=== PATIENT | female | born 1940 | race Caucasian/White ===

== ENCOUNTER 2016-09-08 13:13 | Emergency (ER) | payer MEDICAID ==
[~2016-09-08] VITALS: Wt 83.0 kg
[~2016-09-08 13:13] MED LIST: ASPI-664 PO; FURO20TA3 PO; HYDR-3671 PO; LISI40TA9 PO
[2016-09-08] MEDS ORDERED: LABETALOL HCL 20MG INJ IV ONE (15:00)
[2016-09-08] MEDS ORDERED: SOD CHLORIDE 0.9% 500 ML IV ONE (15:00)
[2016-09-08] MEDS ORDERED: ONDANSETRON 4 MG INJ IV STA (15:07)
[2016-09-08 15:16] LABS: ADD SCAN DIFF NO
[2016-09-08 15:18] LABS: BASOPHIL # 0.1 10^3/ul (0.0-0.1); BASOPHILS % 0.9 % (0.0-2.0); EOSINOPHILS # 0.1 10^3/ul (0.0-0.5); EOSINOPHILS % 1.3 % (0.0-7.0); HEMATOCRIT 36.1 % (37.0-47.0); HEMOGLOBIN 12.1 g/dl (12.0-16.0); LYMPHOCYTES # 1.6 10^3/ul (0.8-2.9); LYMPHOCYTES % 23.2 % (15.0-51.0); MEAN CORPUSCULAR HEMOGLOBIN 29.5 pg (29.0-33.0); MEAN CORPUSCULAR HGB CONC 33.5 g/dl (32.0-37.0); MEAN PLATELET VOLUME 10.9 fl (7.4-10.4); MONOCYTE # 0.5 10^3/ul (0.3-0.9); MONOCYTES % 7.4 % (0.0-11.0); NEUTROPHIL # 4.6 10^3/ul (1.6-7.5); NEUTROPHILS % 67.1 % (39.0-77.0); PLATELET COUNT 203 10^3/UL (140-415); RED CELL DISTRIBUTION WIDTH 13.1 % (11.5-14.5); WHITE BLOOD COUNT 6.9 10^3/ul (4.8-10.8)
[2016-09-08] MEDS ORDERED: MECLIZINE 12.5 MG TAB PO ONE (15:30)
[2016-09-08 15:39] LABS: INR 1.09; PROTIME 14.1 Sec (12.2-14.2); PT RATIO 1.1
[2016-09-08 15:40] LABS: ALANINE AMINOTRANSFERASE 30 IU/L (13-69); ALBUMIN 4.7 g/dl (3.3-4.9); ALBUMIN/GLOBULIN RATIO 1.34; ALKALINE PHOSPHATASE 108 IU/L (42-121); ANION GAP 14 (8-16); ASPARTATE AMINO TRANSFERASE 19 IU/L (15-46); BILIRUBIN,INDIRECT 0.9 mg/dl (0-1.1); BILIRUBIN,TOTAL 0.9 mg/dl (0.2-1.3); BLOOD UREA NITROGEN 20 mg/dl (7-20); CALCIUM 9.1 mg/dl (8.4-10.2); CARBON DIOXIDE 27 mmol/L (21-31); CHLORIDE 99 mmol/L (97-110); CREATININE 0.95 mg/dl (0.44-1.00); GLUCOSE 157 mg/dl (70-220); PARTIAL THROMBOPLASTIN TIME 29.6 Sec (25.0-35.0); POTASSIUM 3.7 mmol/L (3.5-5.1); SODIUM 136 mmol/L (135-144); TOTAL PROTEIN 8.2 g/dl (6.1-8.1)
[2016-09-08 15:55] LABS: TROPONIN-I < 0.012 ng/ml (0.00-0.12)
--- NOTE | 2016-09-08 16:13 | RADRPT ---
PROCEDURE: XR Chest. CLINICAL INDICATION: Chest pain. TECHNIQUE: Single frontal view of the chest was obtained. COMPARISON: Chest x-ray 11/10/2015 06:31 p.m. FINDINGS: The soft tissues are generous. Monitoring electrodes are draped across the chest. There are degene rative osteophytes in the thoracic spine. The heart is mildly enlarged. The cardiomediastinal silh ouette and hilar structures are normal. The pulmonary vasculature is equilibrated. There are vascul ar calcifications and ectasia of the thoracic aorta. There is flattening of the diaphragms with incr eased interstitial markings in the bases of the lungs. The left costophrenic angle is obscured. Ri ght costophrenic angle is unremarkable. IMPRESSION: 1. Cardiomegaly with mild pulmonary venous obstruction. 2. Increased interstitial markings in the bases of the lungs which are unchanged compared to 2015. It is unclear if these are acute or chronic. 3. Obscuration of the left costophrenic angle could be the result of atelectasis, pleural scarring or a small pleural effusion. RPTAT:AAJJ Physician Rolando Date Time Electronically viewed and signed by Physician Rolando on 09/08/2016 16:13 KATHRYN/
--- NOTE | 2016-09-08 16:32 | RADRPT ---
PROCEDURE: CT Brain without contrast. CLINICAL INDICATION: High blood pressure and headache with vertigo TECHNIQUE: A CT of the brain was performed on a [employer] 64-slice CT scanner utilizing axial imaging from the skull base through the vertex without IV contrast. Multiplanar reformatted images were made. Images were reviewed on a PACS workstation. The CTDIvol is 41.74 mGy and the DLP is 720 .23 mGycm. One of the following 3 dose reduction techniques were used: Automated exposure control; adjustment of the mA and/or kV according to patient size; or use of iterative reconstruction technique. COMPARISON: 05/04/2007 CT brain FINDINGS: There is no intracranial hemorrhage, mass effect, or midline shift. No extra-axial fluid collection is seen. The ventricles and sulci are age appropriate. Mild diffuse volume loss is present. Subtl e decreased attenuation is present in the bilateral subcortical white matter, bilateral centrum semi ovale, and bilateral periventricular white matter compatible with mild chronic microvascular ischemi c disease. Mild vascular calcifications are present of the intracranial internal carotid arteries. The visualized scalp and calvarium are normal. The bilateral orbits are normal. The bilateral para nasal sinuses, mastoid air cells and middle ear cavities are clear. IMPRESSION: 1. No evidence of acute intracranial hemorrhage, infarcts, or acute intracranial pathology. 2. Mild chronic microvascular ischemic disease and mild diffuse volume loss. 3. Mild atherosclerotic vascular disease RPTAT: HDC .Verena Zacarias MD, MD Date Time Electronically viewed and signed by .Verena Zacarias MD, MD on 09/08/2016 16:31 .C/
--- NOTE | 2016-09-08 16:56 | ERD ---
ER Documentation Chief Complaint Date/Time DATE: 09/08/16 TIME: 16:52 Chief Complaint dizziness for 3 days with possible high bp. no cp . no neuro def. HPI This 76-year-old female presents for 3 days of dizziness. Dizziness is described as a sensation of spinning. She also has nausea but no vomiting. Also complains of pain shooting down her left arm primarily in her left hand... She has no headache, chest pain, shortness of breath. She has had no recent trauma. She is on 3 medications for blood pressure. These include lisinopril, hydralazine, Lasix. States that she has been taking them normally ROS All systems reviewed and are negative except as per history of present illness. Medications Home Meds Active Scripts Amlodipine Besylate* (Amlodipine Besylate*) 5 Mg Tablet, 5 MG PO DAILY, #30 TAB Prov:JANNETDELILAH DO 09/08/16 Ondansetron (Ondansetron Odt) 4 Mg Tab.rapdis, 4 MG PO Q6H Y for NAUSEA AND/OR VOMITING, #10 TAB Prov:JANNETDELILAH DO 09/08/16 Meclizine Hcl* (Meclizine Hcl*) 25 Mg Tablet, 25 MG PO Q8H Y for DIZZINESS, #20 TAB Prov:JANNETDELILAH DO 09/08/16 Furosemide* (Furosemide*) 20 Mg Tablet, 20 MG PO DAILY, #30 TAB 1 Refill Prov:OMERO DISLA MD 10/23/15 Reported Medications Lisinopril* (Lisinopril*) 40 Mg Tablet, 40 MG PO DAILY, #30 TAB 11/27/15 Aspirin* (Aspirin* EC) 81 Mg Tablet.dr, 81 MG PO DAILY, TAB 11/27/15 Hydralazine Hcl* (Hydralazine Hcl*) 25 Mg Tab, 25 MG PO Q8, #90 TAB 11/27/15 Allergies Allergies: Coded Allergies: No Known Allergy (Verified , 10/22/15) PMhx/Soc History of Surgery: No Anesthesia Reaction: No Hx Neurological Disorder: No Hx Respiratory Disorders: No Hx Cardiac Disorders: Yes (HTN) Hx Psychiatric Problems: No Hx Miscellaneous Medical Probl: No Hx Alcohol Use: No Hx Substance Use: No Hx Tobacco Use: No Physical Exam Vitals Vital Signs Date Time Temp Pulse Resp B/P Pulse Ox O2 Delivery O2 Flow Rate FiO2 09/08/16 17:05 75 20 181/77 100 Room Air 09/08/16 13:17 99.1 83 21 207/100 98 Physical Exam Const: [] No distress Head: Atraumatic Eyes: Normal Conjunctiva, EOMI, PRL ENT: Normal External Ears, Nose and Mouth. Neck: Full range of motion..~ No meningismus. Resp: Clear to auscultation bilaterally Cardio: Regular rate and rhythm, no murmurs Abd: Soft, non tender, non distended. Normal bowel sounds Skin: No petechiae or rashes Back: No midline or flank tenderness Ext: No cyanosis, or edema, distal pulses intact all 4 extremities Neur: Awake and alert and oriented 3, cranial nerves II through XII intact, no cerebral deficits, normal gait, 5 out of 5 strength all extremities Psych: Normal Mood and Affect Result Diagram: 09/08/16 1505 09/08/16 1505 Results 24 hrs Laboratory Tests Test 09/08/16 15:05 09/08/16 16:40 White Blood Count 6.910^3/ul Red Blood Count 4.1010^6/ul Hemoglobin 12.1g/dl Hematocrit 36.1% Mean Corpuscular Volume 88.0fl Mean Corpuscular Hemoglobin 29.5pg Mean Corpuscular Hemoglobin Concent 33.5g/dl Red Cell Distribution Width 13.1% Platelet Count 17506^3/UL Mean Platelet Volume 10.9fl Neutrophils % 67.1% Lymphocytes % 23.2% Monocytes % 7.4% Eosinophils % 1.3% Basophils % 0.9% Nucleated Red Blood Cells % 0.0/100WBC Neutrophils # 4.610^3/ul Lymphocytes # 1.610^3/ul Monocytes # 0.510^3/ul Eosinophils # 0.110^3/ul Basophils # 0.110^3/ul Nucleated Red Blood Cells # 0.010^3/ul Prothrombin Time 14.1Sec Prothrombin Time Ratio 1.1 INR International Normalized Ratio 1.09 Activated Partial Thromboplast Time 29.6Sec Sodium Level 136mmol/L Potassium Level 3.7mmol/L Chloride Level 99mmol/L Carbon Dioxide Level 27mmol/L Anion Gap 14 Blood Urea Nitrogen 20mg/dl Creatinine 0.95mg/dl Glucose Level 157mg/dl Calcium Level 9.1mg/dl Total Bilirubin 0.9mg/dl Direct Bilirubin 0.00mg/dl Indirect Bilirubin 0.9mg/dl Aspartate Amino Transf (AST/SGOT) 19IU/L Alanine Aminotransferase (ALT/SGPT) 30IU/L Alkaline Phosphatase 108IU/L Troponin I < 0.012ng/ml Total Protein 8.2g/dl Albumin 4.7g/dl Globulin 3.50g/dl Albumin/Globulin Ratio 1.34 Urine Color STRAW Urine Clarity CLEAR Urine pH 6.0 Urine Specific [place] 1.006 Urine Ketones NEGATIVEmg/dL Urine Nitrite NEGATIVEmg/dL Urine Bilirubin NEGATIVEmg/dL Urine Urobilinogen NEGATIVEmg/dL Urine Leukocyte Esterase TRACELeu/ul Urine Microscopic RBC 1/HPF Urine Microscopic WBC 1/HPF Urine Hemoglobin NEGATIVEmg/dL Urine Glucose NEGATIVEmg/dL Urine Total Protein NEGATIVEmg/dl Current Medications Medications (Trade) Dose Ordered Sig/Nisha Route PRN Reason Start Time Stop Time Status Last Admin Dose Admin Labetalol HCl 20 mg 20 mg ONCE ONCE IV 09/08/16 15:00 09/08/16 15:01 DC 09/08/16 15:35 Sodium Chloride (NS) 500 ml @ 500 mls/hr Q1H ONCE IV 09/08/16 15:00 09/08/16 15:59 DC 09/08/16 15:35 Meclizine HCl (Antivert) 25 mg ONCE ONCE PO 09/08/16 15:30 09/08/16 15:56 DC 09/08/16 15:36 Ondansetron HCl (Zofran Inj) 4 mg ONCE STAT IV 09/08/16 15:07 09/08/16 15:09 DC 09/08/16 15:36 Procedures/MDM Hypertensive urgency and patient with vertigo and pain shooting down her left arm possibly concerning for cardiac dysfunction. Patient with 3 days of vertigo and nausea with no previous history warranted a stroke and chest pain workup with her left arm pain. Fortunately she shows no signs of cardiac ischemia. She does have poorly controlled blood pressures her EMR shows her last visit for his uncontrolled hypertension as well. She states that she has a primary care doctor but he has not changed her medication for some time. Gave her 20 mg of labetalol in the emergency room because of a very high blood pressure with concerning symptoms. Blood pressure was lowered to an acceptable level. Patient was given 25 mg of Antivert and 4 mg of IV Zofran as well as 500 cc of IV fluid. Stated that her symptoms have resolved completely. I doubt subarachnoid hemorrhage or any acute stroke. Seems like this is an inner ear problem. I am going to discharge with follow-up and instructions to obtain a referral for an ENT doctor. I am discharging with Antivert, Zofran ODT, amlodipine 5 mg tabs. I have instructed to follow-up with a primary care doctor in the next day or 2 to discuss her blood pressure and also talk to her about getting a blood pressure machine at home so she can keep a diary to provide her doctor with to make better decisions about her blood pressure regimen. EKG interpretation: Sinus bradycardia rate of 56, first-degree AV block with SC of 210, left axis deviation, no ST or T-wave changes concerning for acute ischemia. monitor and storage bin tender interpretation: Sinus bradycardia alternating with normal sinus rhythm, no other arrhythmias Chest x-ray interpretation: I see no acute process. I see no widened mediastinum, no pneumothorax, no infiltrates, no pulmonary edema, no fractures CT brain interpretation: I see no acute process. I see no hemorrhage, no mass- effect no midline shift, no skull fracture Critical care time 33 minutes: This includes treatment of hypertensive urgency in a patient with very poorly controlled blood pressure and a systolic over 200 and diastolic over 100, use of IV vasoactive medication labetalol, multiple visits the patient's bedside to reassess her status, chart review, discussion at length with patient and family. This does not include any billable procedure Departure Diagnosis: Primary Impression: Vertigo Additional Impressions: Left arm pain Uncontrolled hypertension DELILAH POWER DO Sep 08, 2016 16:56
[2016-09-08 17:05] VITALS: BP 181/77; PULSE 75; RESP 20
[2016-09-08 17:27] LABS: ADD UMIC YES; UR ASCORBIC ACID NEGATIVE (NEGATIVE); UR BILIRUBIN (Dip) NEGATIVE (NEGATIVE); UR BLOOD (Dip) NEGATIVE (NEGATIVE); UR CLARITY CLEAR (CLEAR); UR COLOR STRAW (YELLOW); UR GLUCOSE (Dip) NEGATIVE (NEGATIVE); UR KETONES (Dip) NEGATIVE (NEGATIVE); UR LEUKOCYTE ESTERASE (Dip) TRACE Leu/ul (NEGATIVE); UR NITRITE (Dip) NEGATIVE (NEGATIVE); UR RBC 1 /HPF (0-5); UR SPECIFIC GRAVITY (Dip) 1.006 (1.003-1.030); UR TOTAL PROTEIN (Dip) NEGATIVE (NEGATIVE); UR UROBILINOGEN (Dip) NEGATIVE (NEGATIVE)
[2016-09-08] MEDS ORDERED: MECL-77 PO (17:36)
[2016-09-08] MEDS ORDERED: ONDA4TAB14 PO (17:36)
[2016-09-08] MEDS ORDERED: AMLO-145 PO (17:41)
== END 2016-09-08 18:26 | disposition home or self-care (01) ==
LOC: E/R 13:13
DX: R42 Dizziness and giddiness (principal); R40.2252 Coma scale, best verbal response, oriented, at arrival to emergency department; M79.602 Pain in left arm; I10 Essential (primary) hypertension; R11.0 Nausea; R40.2142 Coma scale, eyes open, spontaneous, at arrival to emergency department; R40.2362 Coma scale, best motor response, obeys commands, at arrival to emergency department; Z79.82 Long term (current) use of aspirin
CPT/HCPCS: 36415; 70450; 71010; 80053; 81001; 84484; 85025; 85610; 85730; 93005; 96374; 96375; J2405; Z7502; Z7610

== ENCOUNTER 2018-04-01 11:26 | Emergency (ER) | payer MEDICAID ==
[~2018-04-01] VITALS: Wt 82.6 kg
[~2018-04-01 11:26] MED LIST changes: +AMLO-145 PO; -ASPI-664 PO; +ASPI-817 PO; +LISI40TA3 PO; -LISI40TA9 PO; +MECL-77 PO; +ONDA4TAB14 PO
[2018-04-01] MEDS ORDERED: ASPI-817 PO (12:04)
[2018-04-01] MEDS ORDERED: HYDR-3671 PO (12:05)
[2018-04-01] MEDS ORDERED: LISI40TA3 PO (12:05)
[2018-04-01] MEDS ORDERED: FURO40TA4 PO (12:05)
[2018-04-01] MEDS ORDERED: hydrALAzine 20 MG INJ IV ONE (12:30)
[2018-04-01] MEDS ORDERED: MECLIZINE 12.5 MG TAB PO ONE (12:30)
[2018-04-01 13:37] VITALS: BP 167/91; PULSE 87; RESP 18
[2018-04-01] MEDS ORDERED: MECL12.574 PO (13:45)
--- NOTE | 2018-04-01 13:51 | ERD ---
ER Documentation Chief Complaint Chief Complaint DIZZINESS, HTN HPI This is a very pleasant 78-year-old [place]ian-speaking female with a known history of hypertension. She presents to the emergency department today complaining of dizziness. She indicates that the dizziness began roughly an hour prior to arrival. She states she feels as though the room is spinning around her. She denies any syncope or near syncope episode. She denied a headache. She stated that she took her blood pressure was elevated with a systolic of greater than 200. She denies any numbness or tingling of upper or lower extremities. She denies any abdominal pain. She had no shortness of breath. She has no neck pain. She states she has had similar symptoms in the past and her blood pressure is elevated and therefore she came to the emergency department to be further evaluated. She also indicates that she is been compliant with all of her medications. Has had no recent travel hospitalizations ROS All systems reviewed and are negative except as per history of present illness. Medications Home Meds Active Scripts Meclizine Hcl* (Antivert*) 12.5 Mg Tab, 12.5 MG PO Q6H PRN for DIZZINESS, #20 TAB Prov:IRENE CHATMAN MD 04/01/18 Reported Medications Lisinopril* (Lisinopril*) 40 Mg Tablet, 40 MG PO DAILY, #30 TAB 04/01/18 Hydralazine Hcl* (Hydralazine Hcl*) 25 Mg Tab, 25 MG PO BID, #60 TAB 04/01/18 Furosemide* (Furosemide*) 40 Mg Tablet, 40 MG PO DAILY, TAB 04/01/18 Aspirin* (Aspirin* EC) 81 Mg Tablet., 81 MG PO DAILY, TAB 04/01/18 Discontinued Reported Medications Lisinopril* (Lisinopril*) 40 Mg Tablet, 40 MG PO DAILY, #30 TAB 11/27/15 Aspirin* (Aspirin* EC) 81 Mg Tablet., 81 MG PO DAILY, TAB 11/27/15 Hydralazine Hcl* (Hydralazine Hcl*) 25 Mg Tab, 25 MG PO Q8, #90 TAB 11/27/15 Discontinued Scripts Amlodipine Besylate* (Amlodipine Besylate*) 5 Mg Tablet, 5 MG PO DAILY, #30 TAB Prov:DELILAH POWER DO 09/08/16 Ondansetron (Ondansetron Odt) 4 Mg Tab.rapdis, 4 MG PO Q6H PRN for NAUSEA AND/OR VOMITING, #10 TAB Prov:DELILAH POWER DO 09/08/16 Meclizine Hcl* (Meclizine Hcl*) 25 Mg Tablet, 25 MG PO Q8H PRN for DIZZINESS, #20 TAB Prov:DELILAH POWER DO 09/08/16 Furosemide* (Furosemide*) 20 Mg Tablet, 20 MG PO DAILY, #30 TAB 1 Refill Prov:OMERO DISLA MD 10/23/15 Allergies Allergies: Coded Allergies: No Known Allergy (Verified , 04/01/18) PMhx/Soc History of Surgery: No Anesthesia Reaction: No Hx Neurological Disorder: No Hx Respiratory Disorders: No Hx Cardiac Disorders: Yes (HTN) Hx Psychiatric Problems: No Hx Miscellaneous Medical Probl: No Hx Alcohol Use: No Hx Substance Use: No Hx Tobacco Use: No Smoking Status: Never smoker Physical Exam Vitals Vital Signs Date Temp Pulse Resp B/P (MAP) Pulse Ox O2 O2 Flow FiO2 Time Delivery Rate 04/01/18 87 18 167/91 97 Room Air 13:37 (116) 04/01/18 98.5 85 18 244/129 97 11:28 (167) Physical Exam Constitutional:Well-developed. Well-nourished. HEENT:Normocephalic. Atraumatic.Pupils were equal round reactive to light. Moist mucous membranes.No tonsillar exudates. Funduscopy exam shows sharp optic disks and venous pulsations are present Neck: No nuchal rigidity. No lymphadenopathy. No posterior cervical spine tenderness or step-offs. Respiratory: Not using accessory muscles of respiration.Lungs were clear to auscultation bilaterally. No rhonchi. No rales. No wheezing. Cardiovascular: Regular rate regular rhythm.No murmurs. No rubs were appreciated.S1, S2 normal. Distal pulses are palpable 2+ bilaterally. GI: Abdomen was soft. Nontender. Non Distended. No pulsatile abdominal masses or bruits. No rebound. No guarding. Bowel sounds were present and normal. Muscle skeletal: Full range of motion of both the upper and lower extremities bilaterally.Normal muscle tone.No assymetrical calf tenderness or swelling. Skin: No petechia, no purpura. No lesions on the palms or the soles of the feet. No maculopapular rash. NEURO: Patient was alert, awake, orientated x3.No facial droop. Gait observed and normal with no ataxia.Speech had regular rate and rhythm. No focal neurological deficits. Result Diagram: 04/01/18 1210 04/01/18 1210 Results 24 hrs Laboratory Tests Test 04/01/18 12:10 04/01/18 12:25 White Blood Count 9.5 10^3/ul Red Blood Count 4.60 10^6/ul Hemoglobin 13.4 g/dl Hematocrit 40.0 % Mean Corpuscular Volume 87.0 fl Mean Corpuscular Hemoglobin 29.1 pg Mean Corpuscular Hemoglobin Concent 33.5 g/dl Red Cell Distribution Width 12.3 % Platelet Count 193 10^3/UL Mean Platelet Volume 11.4 fl Immature Granulocytes % 0.400 % Neutrophils % 77.9 % Lymphocytes % 15.1 % Monocytes % 4.7 % Eosinophils % 1.3 % Basophils % 0.6 % Nucleated Red Blood Cells % 0.0 /100WBC Immature Granulocytes # 0.040 10^3/ul Neutrophils # 7.4 10^3/ul Lymphocytes # 1.4 10^3/ul Monocytes # 0.5 10^3/ul Eosinophils # 0.1 10^3/ul Basophils # 0.1 10^3/ul Nucleated Red Blood Cells # 0.0 10^3/ul Prothrombin Time 13.4 Sec Prothrombin Time Ratio 1.0 INR International Normalized Ratio 1.01 Activated Partial Thromboplast Time 27.4 Sec Sodium Level 137 mmol/L Potassium Level 3.7 mmol/L Chloride Level 101 mmol/L Carbon Dioxide Level 25 mmol/L Anion Gap 11 Blood Urea Nitrogen 16 mg/dl Creatinine 0.64 mg/dl Est Glomerular Filtrat Rate mL/min mL/min Glucose Level 171 mg/dl Calcium Level 9.4 mg/dl Total Bilirubin 0.7 mg/dl Direct Bilirubin 0.00 mg/dl Indirect Bilirubin 0.7 mg/dl Aspartate Amino Transf (AST/SGOT) 23 IU/L Alanine Aminotransferase (ALT/SGPT) 18 IU/L Alkaline Phosphatase 155 IU/L Troponin I < 0.012 ng/ml Total Protein 8.4 g/dl Albumin 4.4 g/dl Globulin 4.00 g/dl Albumin/Globulin Ratio 1.10 Urine Color COLORLESS Urine Clarity CLEAR Urine pH 7.0 Urine Specific [place] 1.004 Urine Ketones NEGATIVE mg/dL Urine Nitrite NEGATIVE mg/dL Urine Bilirubin NEGATIVE mg/dL Urine Urobilinogen NEGATIVE mg/dL Urine Leukocyte Esterase NEGATIVE Alexus/ul Urine Hemoglobin NEGATIVE mg/dL Urine Glucose NEGATIVE mg/dL Urine Total Protein NEGATIVE mg/dl Current Medications Medications Dose Sig/Nisha Start Time Status Last (Trade) Ordered Route PRN Stop Time Admin Dose Reason Admin Hydralazine 10 mg ONCE ONCE 04/01/18 DC 04/01/18 HCl IV 12:30 12:20 (Apresoline) 04/01/18 12:31 Meclizine 25 mg ONCE ONCE 04/01/18 DC 04/01/18 HCl PO 12:30 12:19 (Antivert) 04/01/18 12:31 Procedures/MDM This patient presented to the emergency department with severely elevated blood pressure. My differential diagnosis included but was not limited to conditions that could end-organ damage such as acute coronary syndrome, acute pulmonary edema, aortic dissection, subarachnoid hemorrhage, intracerebral hemorrhage, cerebral infarction, withdrawal syndromes from beta blockers, or states of catecholamine excess such as pheochromocytoma or drug intoxication. Ancillary lab work was obtained. There was no elevation in the BUN and creatinine to suggest acute renal failure. Electrolytes were normal. Cardiac enzyme was normal and the 12 lead EKG showed no acute ischemic changes or left ventricular hypertrophy. 12 Lead EKG tracing ordered and reviewed by myself showed: Normal sinus rhythm of 87 bpm and no arrhythmia. TX interval normal. QRS duration normal. No ST segment elevation No ST segment depression. No changes consistent with acute ischemia. I did also administer Antivert which improved the patient's dizziness Given that the patient had an absence of cerebral, ocular, cardiac or renal damage the hypertensive urgency was treated with oral agents and IV hydralazine in the emergency room with improvement of the patient's blood pressure. The patient likely appeared to be complaint with primary care physician and will follow up with their PCP in the next 24-48 hours. They were instructed to return to the emergency department at anytime if there is any worsening of their condition such as development of chest pain or a headache. They were instructed to resume previous medication regimen or initiate a suitable medication regimen under care of the PCP to enable proper monitoring for drug reactions. The patient was also informed on the adverse side effects and adverse drug interactions of the medications prescribed to them by myself. The patient gave informed consent to the prescription of the new medication. Departure Diagnosis: Primary Impression: Dizziness Additional Impression: Accelerated hypertension Condition: Fair Patient Instructions: Dizziness, Unk Cause, Hypertension, Established, Out Of Control IRENE CHATMAN MD Apr 01, 2018 13:51
== END 2018-04-01 14:28 | disposition home or self-care (01) ==
LOC: E/R 11:26
DX: R42 Dizziness and giddiness (principal); I10 Essential (primary) hypertension; R40.2252 Coma scale, best verbal response, oriented, at arrival to emergency department; R40.2362 Coma scale, best motor response, obeys commands, at arrival to emergency department; R40.2142 Coma scale, eyes open, spontaneous, at arrival to emergency department; R07.9 Chest pain, unspecified; Z79.82 Long term (current) use of aspirin
CPT/HCPCS: 70450; 71045; 80053; 81003; 84484; 85025; 85610; 85730; 96374; J0360; Z7502; Z7610; 93005

== ENCOUNTER 2018-06-20 18:51 | Emergency (ER) | payer MEDICAID ==
[~2018-06-20] VITALS: Ht 152.4 cm; Wt 83.8 kg
[~2018-06-20 18:51] MED LIST changes: -AMLO-145 PO; -FURO20TA3 PO; +FURO40TA4 PO; -MECL-77 PO; +MECL12.574 PO; -ONDA4TAB14 PO
[2018-06-20 19:27] VITALS: Ht 152.4 cm; Wt 83.8 kg
--- NOTE | 2018-06-20 21:28 | ERD ---
ER Documentation Chief Complaint Chief Complaint R KNEE PAIN X'S 2 MONTHS HPI 78-year-old female, presents to the emergency department, complaining of 2 months with constant, dull, atraumatic left knee pain. 08/28. The patient has been taking Tylenol intermittently with mild improvement of the symptoms. She denies distal weakness, numbness or tingling. ROS All systems reviewed and are negative except as per history of present illness. Medications Home Meds Active Scripts Acetaminophen* (Tylenol*) 325 Mg Tablet, 2 TAB PO Q6 PRN for PAIN AND OR ELEVATED TEMP, #20 TAB Prov:JOSE MANUEL JONAS MD 06/20/18 Ibuprofen* (Motrin*) 400 Mg Tab, 400 MG PO Q6H PRN for PAIN AND OR ELEVATED TEMP, #12 TAB Prov:JOSE MANUEL JONAS MD 06/20/18 Meclizine Hcl* (Antivert*) 12.5 Mg Tab, 12.5 MG PO Q6H PRN for DIZZINESS, #20 TAB Prov:IRENE CHATMAN MD 04/01/18 Reported Medications Lisinopril* (Lisinopril*) 40 Mg Tablet, 40 MG PO DAILY, #30 TAB 04/01/18 Hydralazine Hcl* (Hydralazine Hcl*) 25 Mg Tab, 25 MG PO BID, #60 TAB 04/01/18 Furosemide* (Furosemide*) 40 Mg Tablet, 40 MG PO DAILY, TAB 04/01/18 Aspirin* (Aspirin* EC) 81 Mg Tablet.dr, 81 MG PO DAILY, TAB 04/01/18 Allergies Allergies: Coded Allergies: No Known Allergy (Verified , 04/01/18) PMhx/Soc History of Surgery: No Anesthesia Reaction: No Hx Neurological Disorder: No Hx Respiratory Disorders: No Hx Cardiac Disorders: Yes (HTN) Hx Psychiatric Problems: No Hx Miscellaneous Medical Probl: No Hx Alcohol Use: No Hx Substance Use: No Hx Tobacco Use: No Smoking Status: Never smoker Physical Exam Vitals Vital Signs Date Temp Pulse Resp B/P (MAP) Pulse Ox O2 O2 Flow FiO2 Time Delivery Rate 06/20/18 97.5 85 20 202/100 99 19:27 (134) Physical Exam Patient alert, oriented, vital signs stable. HEENT: Normocephalic, atraumatic. EYES: PERRLA, EOMI, Sclera and conjunctiva appear normal. EARS: Canals clear, tympanic membranes WNL. THROAT: Normal oropharynx. NECK: Supple, No lymphadenopathy. Full ROM without pain or tenderness. HEART: RRR, no rubs, murmurs, clicks or gallops. LUNGS: Clear to auscultation. ABDOMEN: Soft, non-tender without masses or hepatosplenomegaly. EXTREMITIES: Bilateral knees: Diffuse tenderness to palpation, full passive range of motion, no erythema, no fluctuance, no knee effusion. BACK: Full ROM, no deformity, normal back exam NEURO: Cranial nerves grossly intact, no motor or sensory deficit SKIN: No rashes, no petechia. Results 24 hrs Current Medications Medications Dose Sig/Nisha Start Time Status Last (Trade) Ordered Route PRN Stop Time Admin Dose Reason Admin Ketorolac 15 mg ONCE STAT 06/20/18 DC 06/20/18 Tromethamine IM 21:35 06/20/18 21:41 (Toradol) 21:38 Procedures/MDM Chronic bilateral knee pain : no red flags. Differential diagnosis include but n ot limited to: Knee contusion, meniscus injury, tendon/ligament injury, arthritis; low suspicion for fracture, dislocation, septic arthritis. Neurovascular exam grossly intact. no clinical findings suggestive of acute infectious process, no acute deformity, no edema, no rashes. Pertinent Data: X-rays: No fracture or dislocation Physical examination and clinical presentation consistent most likely with knee osteoarthritis. During the ED course the patient received treatment with Toradol IM presenting overall improvement of the symptoms. Results and clinical impression discussed with the patient who agrees with management. The patient is stable to be treated outpatient and will be discharged home with recommendations for ice, rest and partial immobilization. NSAIDs 3 times daily for 5 days and close monitoring. The patient was instructed to follow up with the primary care provider in the next 48h. If symptoms persist, worsen or new symptoms develop, then patient should return to the ED immediately. Instructions explained and given to patient with acknowledgment and demonstrated understanding. Disclaimer: Inadvertent spelling and grammatical errors are likely due to EHR/dictation software use and do not reflect on the overall quality of patient care. Also, please note that the electronic time recorded on this note does not necessarily reflect the actual time of the patient encounter. Departure Diagnosis: Primary Impression: Osteoarthritis of knee Condition: Stable Additional Instructions: Candy soares por [facility] para christianson servicio. Esperamos que en christianson visita a la ivan de emergencia christianson problema medico haya sido solucionado y que se sienta mucho mejor. Para estar seguros que christianson mejoria sigue en proceso, le pedimos el favor de hacer marcela edgard de seguimiento medico con christianson doctor primario en los proximos 2-4 holley. Lleve con usted estos documentos y las medicinas recetadas. Si daniel sintomas empeoran, NO SE ESPERE, por favor regrese a ivan de emergencia INMEDIATAMENTE. En amanda que usted no tenga un mdico de atencin primaria: Llame al mdico o clnica comunitaria de referencia que aparece abajo rito las horas de consultorio para hacer marcela edgard para que le vean. CLINICAS: [facility] [phone] [facility] [phone] [facility] [phone] [facility] [phone] [place] [id number] [phone] [phone] JOSE MANUEL BLOOM MD Jun 20, 2018 21:28
[2018-06-20] MEDS ORDERED: KETOROLAC 15 MG INJ IM STA (21:35)
[2018-06-20] MEDS ORDERED: ACET325T33 PO (23:06)
[2018-06-20] MEDS ORDERED: IBUP-1561 PO (23:06)
== END 2018-06-21 01:55 | disposition home or self-care (01) ==
LOC: FTE 18:51
DX: M17.9 Osteoarthritis of knee, unspecified (principal); I10 Essential (primary) hypertension; Z79.82 Long term (current) use of aspirin
CPT/HCPCS: 73562; 96372; J1885; Z7502

== ENCOUNTER 2018-12-03 17:27 | Emergency (ER) | payer MEDICAID ==
[~2018-12-03] VITALS: Wt 81.8 kg
[~2018-12-03 17:27] MED LIST changes: +ACET325T33 PO; +HYDR-4011 PO; +IBUP-1561 PO
[2018-12-03] MEDS ORDERED: KETOROLAC 15 MG INJ IM STA (18:10)
[2018-12-03] MEDS ORDERED: HYDROCODONE/APAP (5/325) TAB PO ONE (18:30)
[2018-12-03 23:25] VITALS: BP 129/67; PULSE 78; RESP 20
== END 2018-12-03 23:25 | disposition home or self-care (01) ==
LOC: FTE 17:27
DX: S52.502A Unspecified fracture of the lower end of left radius, initial encounter for closed fracture (principal); I10 Essential (primary) hypertension; S52.615A Nondisplaced fracture of left ulna styloid process, initial encounter for closed fracture; W01.0XXA Fall on same level from slipping, tripping and stumbling without subsequent striking against object, initial encounter; Z79.82 Long term (current) use of aspirin
CPT/HCPCS: 29125; 73110; 96372; J1885; Z7502; Z7610